=== PATIENT | male | born 1995 | race Caucasian/White ===

== ENCOUNTER 2022-06-13 20:09 | Emergency (ER) | payer OTHER, BC, SELFPAY ==
[2022-06-13 20:17] VITALS: BP 113/65; PULSE 98; RESP 16; TEMP 36.3; O2SAT 98; BMI 29.8
[2022-06-13 20:30] VITALS: BP 104/63; PULSE 62; RESP 18; O2SAT 97
--- NOTE | 2022-06-13 20:33 | CRLHL7_ITS ---
For Patients: As a result of the Century Cures Act, medical imaging exams and procedure reports are released immediately into your electronic medical record. You may view this report before your referring provider. If you have questions, please contact your health care provider. DATE: 06/13/2022. CLINICAL HISTORY: Right-sided facial numbness; right temporal pain. TECHNIQUE: Standard helical CT image acquisition of the brain was performed. COMPARISON: None available. FINDINGS: There is no intracranial hemorrhage. No extra-axial collection, mass effect, or midline shift. Pozo-white matter differentiation is preserved. The ventricles are normal in size and morphology for patient age. The calvarium is unremarkable. The orbits are unremarkable. The paranasal sinuses are unremarkable. The mastoid air cells are unremarkable. The soft tissues are unremarkable. IMPRESSION: No CT evidence of acute intracranial abnormality. Please note that all CT scans at this facility use dose modulation, iterative reconstruction, and/or weight-based dosing when appropriate to reduce radiation dose to as low as reasonably achievable. Dictated by Dustin Braswell MD @ 06/13/2022 9:16:32 PM (Electronically Signed)
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
== END 2022-06-13 21:30 | disposition home or self-care (01) ==
LOC: ED 21:26
PROVIDERS: Emergency Provider Family Medicine; PCP Surgery
DX: R29.810 Facial weakness (principal); R20.2 Paresthesia of skin
CPT/HCPCS: 70450; 99284